=== PATIENT | female | born 1995 | race Caucasian/White ===

== ENCOUNTER 2024-12-31 23:50 | Inpatient (IN) ==
[2025-01-01] MEDS ORDERED: NIFEdipine 10 MG CAPSULE PO PRN (00:29)
[2025-01-01] MEDS ORDERED: LABETALOL 20 MG/4 ML SYRINGE IVP PRN ×3 (00:29)
[2025-01-01] MEDS ORDERED: TRANEXAMIC ACID IN NACL 1,000 MG/100 ML BAG IV PRN (00:29)
[2025-01-01] MEDS ORDERED: METHYLERGONOVINE 0.2 MG/ML VIAL IM PRN (00:29)
[2025-01-01] MEDS ORDERED: fentaNYL 100 MCG/2 ML VIAL IVP PRN (00:29)
[2025-01-01] MEDS ORDERED: hydrALAZINE INJ 20 MG/ML VIAL IVP PRN (00:29)
[2025-01-01] MEDS ORDERED: OXYTOCIN 10 UNIT/ML VIAL IM PRN (00:29)
[2025-01-01] MEDS ORDERED: lidocaine 1% 20 ML MDV ID PRN (00:29)
[2025-01-01] MEDS ORDERED: SODIUM CHLORIDE FLUSH 0.9% 10 ML SYRINGE IVP PRN (00:29)
[2025-01-01] MEDS ORDERED: TERBUTALINE 1 MG/ML VIAL SUBQ PRN (00:29)
[2025-01-01] MEDS ORDERED: miSOPROStoL 200 MCG TABLET BC PRN (00:29)
[2025-01-01] MEDS ORDERED: miSOPROStoL 200 MCG TABLET PR PRN (00:29)
--- NOTE | 2025-01-01 00:33 | HISTORY & PHYSICAL EXAMINATION ---
Admit History Visit Reason Visit Reason: Contractions and Membranes rupture (at about 1800) : 2 Parity: 1 Care: positive [facility] Risk/History: positive None Complications This : positive None Smoking Status: Never smoker Other Maternal History Other Maternal History: with IUP at 40w 5d by LMP presents in active labor. alot back discomfort. worked all week including today. US done for small for dates on 11/20/24 FINDINGS: General: A single living intrauterine gestation is present. Presentation: Vertex Placenta: Placental position is anterior, without previa. Amniotic fluid index: 11.9 cm, within normal limits for gestational age. heart rate: 160 beats per minute. Maternal cervical canal: 4.1 cm long; normal length is 2.5 cm or more. biometrics: Biparietal diameter: 8.3 cm, 33 weeks 2 days, 15% Head circumference: 30.2 cm, 33 weeks 3 days, 4% Abdominal circumference: 31.2 cm, 35 weeks 1 day, 73% Femur length: 6.4 cm, 33 weeks 2 days, 12% Estimated gestational age from initial scan: 34 weeks 4 days Composite gestational age from present scan: 33 weeks 6 days Estimated weight and percentile: 2391 g, 36% Measurement variability in biometric dating: +/- 10 days from 12-20 weeks gestation, +/- 2 weeks from 20-30 weeks gestation, +/- 3 weeks at 30 weeks gestation or more. IMPRESSION: Single live anterior consistent with 33 weeks and 6 days. Reviewed by: Kenneth Sauceda MD on 11/20/2024 Expected Delivery Route/Plan Delivery plan: declines elective IOL. would like not to be on IV fluids unless really needs. epidural maybe. Scheduled for late-term IOL on 01/05, 8pm. Specific Issues/Plans LMP: 03/22/2024 LUKAS by LMP: 12/27/2024 US on 05/14/24 C/W LUKAS by LMP Final LUKAS: 12/27/2024 Moved from [place] to [facility], 1st visit here at 27wk. 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 , Crispin, retired [employer], he is working on a [employer]. They are both from [place]. Daughter, Stefanie, will be 2 in December. This is baby girl, Scarlet. Pre- Weight: 125 lb BMI: 22.2 Blood type: O+ Antibody: negative CBC: PLT-285 HCT-39.2 HGB-12.9 RUB: immune VZV: immune HBsAg: negative HepC: negative RPR/AB-EIA: non-reactive HIV: negative PAP: 01/11/2022-negative GC/CT: negative (06/14) HSV: denies in herself/partner Genetic testing: NIPT on 05/31-negative. AFP done 07/14-negative Covid: declines Flu: declines TDAP: 09/30 RSV: 11/12/24 FAS: 08/09/2024 Placenta: anterior Cord: 3VC LIZA: wnl EFW: wnl 50gm OGCT: 169 3HR GTT: F77 1hr 132 2hr 104 3 hr 115 Breast Pump: 09/30 Antibody screen: 3rd trimester PLT 226 HCT 36.4 HGB12.4 3rd trimester RPR: NR GBS: negative Contraception: natural family planning HPI Current : Current EDU 12/27/24 Gestation 40 Weeks and 5 Days Para 1 NST Procedure NST Procedure: NST Procedure Start Date 12/31/24 Start Time 23:55 Stop Time 00:17 Vibroacoustic Stimulation Used No Patient States Movement Yes Meds/Allgy Home Medications Ambulatory Orders Medication Instructions Recorded Confirmed vits no.126-ferrous fum tab PO QDAY 09/20/24 12/29/24 28 mg iron-folic acid 800 mcg tablet (Classic ) Allergies Allergies Allergy/AdvReac Type Severity Reaction Status Date / Time No Known Drug Allergies Allergy Verified 10/28/24 08:55 PFSH Active Problems All Active Problems (Updated 01/01/25 @ 00:39 by Eda Medina MD) Normal labor (Acute) Small for dates infant in prior , currently in third trimester (Acute) Supervision of normal in second trimester (Acute) Family History Family History (Updated 09/20/24 @ 13:50 by Marissa Drew RN) Father High blood pressure Social History Social History (Updated 09/20/24 @ 13:51 by Marissa Drew RN) Smoking Status: Never smoker Living arrangement: At home ETOH Use: None Substance Use: denies use Review of Systems Cardiovascular Denies: Irregular heart rate or shortness of breath with exertion Respiratory Denies: Shortness of breath Musculoskeletal Reports: Back pain Physical Abdominal Exam Contraction Frequency (min/apart): q3-4 min Contraction Intensity: positive Mild to moderate Uterine Resting Tone: positive Soft Monitoring Heart Rate Baseline: 135 Strip Review: positive Category I Presentation Presentation: positive Vertex Vaginal Exam Membranes: positive Membranes ruptured Dilation (in cm): 5 Effacement (%): 100 Station: positive -1 (very soft) Cervical Position: positive Midposition Speculum Exam Speculum Exam Performed: positive No Findings: positive Gross leak Plan for Labor Plan For Labor I expect patient to be DC'd or transferred within 96 hours.: Yes Plan for Labor: admit. tub. epidural is she wants. anticipate later today. Conclusion/Plan Problem List (1) Normal labor:
[2025-01-01] MEDS: LACTATED RINGERS 1,000 ML IV PRN (00:53)
[2025-01-01 00:59] LABS: BASOPHILS % (AUTO) 0.3 %; EOSINOPHILS # (AUTO) 0.2 10^3/uL (0.0-0.7); EOSINOPHILS % (AUTO) 1.4 %; HCT - HEMATOCRIT 39.4 % (37.0-47.0); HGB - HEMOGLOBIN 13.4 g/dL (12.0-16.0); MEAN CORPUSCULAR HEMOGLOBIN 31.3 pg (27.0-31.0); MEAN CORPUSCULAR VOLUME 92.1 fL (81.0-99.0); NEUTROPHILS # (AUTO) 8.6 10^3/uL (1.5-6.6); NEUTROPHILS % (AUTO) 72.5 %; PLT - PLATELET COUNT 187 10^3/uL (130-450); RED BLOOD COUNT 4.28 10^6/uL (4.20-5.40); RED CELL DISTRIBUTION WIDTH 12.5 % (12.0-15.0); WHITE BLOOD COUNT 11.9 x10^3/uL (4.8-10.8)
[2025-01-01] MEDS ORDERED: SODIUM CHLORIDE FLUSH 0.9% 10 ML SYRINGE IVP SCH (01:00)
[2025-01-01] MEDS ORDERED: ROPIVACAINE 0.2% 200 MG/100 ML BAG EP ONE (01:17)
[2025-01-01] MEDS: OXYTOCIN/SODIUM CHLORIDE 500 ML IV PRN (02:50)
--- NOTE | 2025-01-01 04:11 | ANESTHESIA PROCEDURE NOTE ---
Pre-Anesthesia VS, & Labs Diagnosis Surgical Diagnosis:: active labor Procedure Procedure: labor epidural Vitals Vital Signs: Temp Pulse Resp BP 36.9 C 107 H 18 134/87 H 01/01/25 01:18 01/01/25 01:18 01/01/25 01:18 01/01/25 01:18 NPO NPO: Other Is Patient ?: Yes Lab Results Current Lab Results: Laboratory Tests 01/01/25 02:21: Blood Type Recheck O POSITIVE 01/01/25 00:40: WBC 11.9 H, RBC 4.28, Hgb 13.4, Hct 39.4, MCV 92.1, MCH 31.3 H, MCHC 34.0, RDW 12.5, Plt Count 187, MPV 9.0, Neut # (Auto) 8.6 H, Lymph # (Auto) 2.0, [place] # (Auto) 1.0, Eos # (Auto) 0.2, Baso # (Auto) 0.0, Absolute Nucleated RBC 0.00, Nucleated RBC % 0.0, Blood Type O POSITIVE, Antibody Screen NEGATIVE 01/01/25 00:40 Meds/Allgy Home Medications Ambulatory Orders Medication Instructions Recorded Confirmed vits no.126-ferrous fum tab PO QDAY 09/20/24 12/29/24 28 mg iron-folic acid 800 mcg tablet (Classic ) Allergies Allergies Allergy/AdvReac Type Severity Reaction Status Date / Time No Known Drug Allergies Allergy Verified 10/28/24 08:55 PFSH Active Problems All Active Problems (Updated 01/01/25 @ 00:39 by Eda Medina MD) Normal labor (Acute) Small for dates infant in prior , currently in third trimester (Acute) Supervision of normal in second trimester (Acute) Family History Family History (Updated 09/20/24 @ 13:50 by Marissa Drew RN) Father High blood pressure Social History Social History (Updated 09/20/24 @ 13:51 by Marissa Drew RN) Smoking Status: Never smoker Do you dip or chew tobacco?: No Living arrangement: At home ETOH Use: None Substance Use: denies use Anesthesia Exam (Expanded) Exam General: Alert and Oriented x3 Dental: WNL Mouth Openin Fingerbreadth Mallampati classification: II Thyromental Distance: greater than 6 cm Respiratory: Lungs clear Cardiovascular: Regular rate Plan Problem List (1) Normal labor: Plan Anesthesia Type: Epidural Consent for Procedure(s) Verified and Reviewed: Yes Code Status: Attempt Resuscitation ASA Classification ASA classification: 2-Mild systemic disease Is this case an emergency?: No
[2025-01-01] MEDS: ACETAMINOPHEN 500 MG TABLET PO PRN (04:44)
[2025-01-01] MEDS: IBUPROFEN 600 MG TABLET PO SCH (08:34)
[2025-01-01] MEDS: DOCUSATE SODIUM 100 MG CAPSULE PO SCH (10:13)
--- NOTE | 2025-01-01 15:06 | PHARMACY PROGRESS NOTE ---
Best Possible Medication History Admit Date and Time: 01/01/25 0100 Home Medications Medication Instructions Recorded Confirmed Type vits no.126-ferrous fum 1 tab PO QDAY 09/20/24 01/01/25 History 28 mg iron-folic acid 800 mcg tablet (Classic ) Processed by: Pharmacy Medications reviewed in ED?: No Medication History completed: Yes [facility] Statement: As the person ultimately responsible for medication therapy, providers are able to order a medication from an existing home medication list in [facility] via the "Reconcile Routine" prior to Confirmation of that medication by linux support engineer. Such practice is discouraged except when the physician, in their clinical judgment, deems that a medical need exists for a medication without regard to previous use.
[2025-01-01 15:47] VITALS: O2SAT 98
--- NOTE | 2025-01-01 20:33 | DELIVERY NOTE ---
Delivery Note Labor Labor: positive Spontaneous Infant Delivery Method Infant Delivery Method: positive Spontaneous vaginal delivery Presentation Presentation: positive Vertex and OA - occiput anterior Nuchal Cord Nuchal Cord: positive Present (x2, reduced easily) Amniotic Fluid Description Amniotic Fluid Description: positive Clear Episiotomy Type Episiotomy Type: positive None Laceration Laceration: positive None Delivery Outcome Delivery Date: 01/01/25 (around 1:15 am. ) Delivery Outcome: positive Livebirth [place]: positive Placed in direct skin contact with mother, Stimulated and Warmed sex: positive Female Cord Cord: positive 3 vessels Placenta Placenta: positive Intact and Spontaneous Estimated Blood Loss Estimated Blood Loss (in cc): 50 Post Delivery Events Post Delivery Events: positive No post delivery events Delivery Comments (Free Text/Narrative) Delivery Comments (Free Text/Narrative): Patient presents in active labor with SROM. She is 5 cm dilated and +1 station. She is admitted and decided she wanted an epidural. BEAN SNIPPER placed epidural and gave her some intrathecal meds. She say then feeling ready to push pretty quickly after that. She was having intense back pain. I asked her to bear down in between contractions and she did 3 times and baby's head delivered. nuchal cord x 2 easily reduced. Baby's shoulders and body then delivered and baby was put up on her belly. Bed was not broken down. There was a gush of blood after about 2 minutes so I clamped and cut the cord. Oxytocin was started. The placenta delivered with gentle traction. It was intact and discarded. Parents did not want to see it. There was very little blood initially and hardly any until about 7 hours later at 8:30 or so and she bled a bit, QBL 459 cc. Pitocin solved that. Baby is a girl named Marija. She weighed 3642 g, 8 pounds even. Baby's Apgars were good and she never left her mom's chest.
--- NOTE | 2025-01-01 20:45 | PROVIDER PROGRESS NOTE ---
Subjective Subjective Subjective: patient sleeping and room completely dark. I did not wake her up. Crispin jordand to me. Current Medications Current Medications Current Medications: Current Medications Generic Name Dose Route Start Last Admin Trade Name Jordy PRN Reason Stop Dose Admin Acetaminophen 1,000 mg 01/01/25 00:29 01/01/25 13:36 Acetaminophen 500 Mg Tablet PO 1,000 mg Q8H PRN Administration Mild Pain or Fever>38C(100.4F) Docusate Sodium 100 mg 01/01/25 10:00 01/01/25 10:13 Docusate Sodium 100 Mg Capsule PO 100 mg DAILY CHEPE Administration Fentanyl 50 mcg 01/01/25 00:29 Fentanyl 100 Mcg/2 Ml Vial IVP Q1H PRN Severe Pain (score 7-10) Hydralazine HCl 5 - 10 mg 01/01/25 00:29 Hydralazine Inj 20 Mg/Ml Vial IVP Q20M PRN SBP> or= 160 OR DBP> or= 110 Protocol Lactated Ringer's 500 mls @ 999 mls/hr 01/01/25 00:29 01/01/25 00:53 Lr IV 999 mls/hr PRN PRN Administration Blood Pressure Oxytocin/Sodium Chloride 500 mls @ 999 mls/hr 01/01/25 00:29 01/01/25 08:05 Pitocin/Sodium Chloride IV 999 milliunit/min PRN PRN 999 mls/hr POST- HEMORR PREVENTION Administration Protocol 999 MILLIUNIT/MIN Tranexamic Acid 1,000 mg in 100 mls @ 600 mls/hr 01/01/25 00:29 Tranexamic 1,000 Mg/100ml-Nacl IV Q30M PRN EBL >1200mL and within 3hr Ibuprofen 600 mg 01/01/25 09:00 01/01/25 15:44 Ibuprofen 600 Mg Tablet PO 600 mg Q6H CHEPE Administration Labetalol HCl 20 - 80 mg 01/01/25 00:29 Labetalol 20 Mg/4 Ml Syringe IVP Q10M PRN SBP> or= 160 OR DBP> or= 110 Protocol Labetalol HCl 20 mg 01/01/25 00:29 Labetalol 20 Mg/4 Ml Syringe IVP .ONCE PRN SBP> or= 160 OR DBP> or= 110 Protocol Labetalol HCl 20 - 40 mg 01/01/25 00:29 Labetalol 20 Mg/4 Ml Syringe IVP Q10M PRN SBP> or= 160 OR DBP> or= 110 Protocol Lidocaine HCl 20 ml 01/01/25 00:29 Lidocaine 1% 20 Ml Mdv ID 01/04/25 00:29 .ONCE PRN PERINEAL REPAIR Methylergonovine Maleate 0.2 mg 01/01/25 00:29 Methylergonovine 0.2 Mg/Ml Vial IM .ONCE PRN Hemorrhage Misoprostol 600 mcg 01/01/25 00:29 Misoprostol 200 Mcg Tablet BC .ONCE PRN Hemorrhage Misoprostol 800 mcg 01/01/25 00:29 Misoprostol 200 Mcg Tablet IA .ONCE PRN Hemorrhage Nifedipine 10 - 20 mg 01/01/25 00:29 Nifedipine 10 Mg Capsule PO Q20M PRN SBP> or= 160 OR DBP> or= 110 Protocol Oxytocin 10 unit 01/01/25 00:29 Oxytocin 10 Unit/Ml Vial IM .ONCE PRN Step One if no IV access. Sodium Chloride 10 ml 01/01/25 00:29 Sodium Chloride Flush 0.9% 10 Ml Syringe IVP PRN PRN NEEDED PER PROVIDER ORDERS Objective Vital Signs/Intake & Output Vital Signs: Vital Signs x48h Temp Pulse Resp BP Pulse Ox 01/01/25 20:03 36.8 C 80 16 110/70 98 01/01/25 15:46 81 16 110/66 98 Intake & Output: Intake & Output 12/29/24 12/30/24 12/31/24 01/01/25 23:59 23:59 23:59 23:59 Intake Total 1700 / 1700 Output Total 1200 / 1200 Balance 500 / 500 Weight (kg) 156 lb Lab Results 01/01/25 00:40 Other Labs: Lab Results x24hrs 01/01/25 01/01/25 Range/Units 02:21 00:40 WBC 11.9 H (4.8-10.8) x10^3/uL RBC 4.28 (4.20-5.40) 10^6/uL Hgb 13.4 (12.0-16.0) g/dL Hct 39.4 (37.0-47.0) % MCV 92.1 (81.0-99.0) fL MCH 31.3 H (27.0-31.0) pg MCHC 34.0 (32.0-36.0) g/dL RDW 12.5 (12.0-15.0) % Plt Count 187 (130-450) 10^3/uL MPV 9.0 (7.9-10.8) fL Neut # (Auto) 8.6 H (1.5-6.6) 10^3/uL Lymph # (Auto) 2.0 (1.5-3.5) 10^3/uL [place] # (Auto) 1.0 (0.0-1.0) 10^3/uL Eos # (Auto) 0.2 (0.0-0.7) 10^3/uL Baso # (Auto) 0.0 (0.0-0.1) 10^3/uL Absolute Nucleated RBC 0.00 x10^3/uL Nucleated RBC % 0.0 /100WBC Blood Type O POSITIVE Blood Type Recheck O POSITIVE Antibody Screen NEGATIVE Assessment/Plan Problem List (1) Normal labor:
[2025-01-02] MEDS ORDERED: IBUPROFEN 600 MG TABLET PO PRN (08:34)
[2025-01-02] MEDS ORDERED: ACETAMINOPHEN 325 MG TABLET PO PRN (08:34)
--- NOTE | 2025-01-02 08:40 | Discharge Summary ---
Discharge Summary Admit Date: 01/01/25 Discharge Date: 01/02/25 Discharging Provider: Eda Medina MD Code Status: Attempt Resuscitation DIAGNOSES Admission Diagnoses: term in active labor Discharge Diagnoses with Status of Each Condition: normal vaginal delivery HPI History of Present Illness: term , uncomplicated HOSPITAL COURSE Hospital Course: presented in active labor 5 cm. received epidural and delivered vaginally shortly afterward. Baby girl 8 pounds even. PP course unremarkable. some bleeding at about 8 hrs requiring more pitocin. ALLERGIES Allergies Allergy/AdvReac Type Severity Reaction Status Date / Time No Known Drug Allergies Allergy Verified 10/28/24 08:55 MEDICATIONS Ambulatory Orders Medication Instructions Recorded Confirmed vits no.126-ferrous fum 1 tab PO QDAY 09/20/24 01/01/25 28 mg iron-folic acid 800 mcg tablet (Classic ) acetaminophen 325 mg capsule 325 - 650 mg PO Q4H PRN 01/02/25 docusate sodium 100 mg capsule 100 mg PO BID 01/02/25 (Colace) ibuprofen 600 mg tablet 600 mg PO Q6H PRN 01/02/25 PHYSICAL EXAM AT DISCHARGE General Appearance: positive No acute distress Cardiovascular: positive Regular rate & rhythm LABS 01/01/25 00:40 FOLLOW UP Follow Up: in Ob clinic in 1-2 weeks. we will call her. TIME SPENT Time Spent in Discharge (Minutes): 15 Discharge Plan Discharge Patient Disposition: Home, Self Care Prescriptions: Continued Classic 28 mg iron- 800 mcg tablet 1 tab PO QDAY No Action acetaminophen 325 mg capsule 325 - 650 mg PO Q4H PRN ibuprofen 600 mg tablet 600 mg PO Q6H PRN docusate sodium [Colace] 100 mg capsule 100 mg PO BID Activity Restrictions: pelvic rest for 6 weeks Diet: Regular Print Language: Occitan Patient Instructions: Vaginal, Follow-up Care: Eda Medina MD [Provider Admit Priv/Credential] - (we will call her with appt)
[2025-01-02] MEDS ORDERED: DOCUSATE SODIUM 100 MG CAPSULE PO SCH (09:00)
[2025-01-02 11:03] VITALS: BP 111/71; TEMP 98.6
--- NOTE | 2025-01-02 13:06 | Labor Flowsheet ---
Labor Flowsheet Datetime Report Generated by CPN: 01/02/2025 13:06 Datetime: 01/02/2025 11:01 VITAL SIGNS NBP Sys/Rosey/Mean (mmHg): 111 : 71 : 79 Pulse: 79 Datetime: 01/01/2025 04:03 Membranes Ruptured Date/Time: 12/31/2024 20:00 Membranes Rupture Method: Spontaneous Amniotic Fluid Color: Clear Amniotic Fluid Amount: Moderate Amniotic Fluid Odor: Normal Datetime: 01/01/2025 01:46 Stage of : Recovery Respirations: 18 SpO2 (%): 98 Temperature (C): 37.0 Temperature Route: Oral Datetime: 01/01/2025 01:45 LaborFlag: OB Triage Datetime: 01/01/2025 01:33 COMMUNICATION Communication: Provider at Bedside Provider Notified (Name): Medina Datetime: 01/01/2025 01:30 VAGINAL EXAM Dilatation (cm): 10.0 Effacement (%): 100 Station: 2 Exam by: juliana dubose rn Vaginal Bleeding: Normal Show Cervix, Consistency: Soft Cervix, Position: Anterior Vaginal Exam Comments: md notified Procedures: Sterile Vag Exam Patient Position/Activity: HOB Lowered ANESTHESIA Anesthesia Plans: Spinal Epidural Procedure: Test Dose Epidural Procedure Other: Single Dose Datetime: 01/01/2025 01:20 PROCEDURE TIME OUT Procedure Type: 0120 Procedure Verify: Correct Patient Identity; Correct Side and Site are Marked; Agreement on Procedur e to be Done Epidural Positioning: Sitting Datetime: 01/01/2025 01:19 Patient Care Comments: admit for labor, transfer to room2 Datetime: 01/01/2025 01:06 ASSESSMENT A Monitor Mode: Telemetry FHR Baseline Rate : 135 FHR Baseline Changes: No Baseline Change Variability: Moderate 6-25 bpm Accelerations: 10X10 Decelerations: None Category: Category I Comments: maternal position interferes with tracing PATIENT CARE Oxygen Method: Room Air
== END 2025-01-02 11:40 | disposition home or self-care (01) | DRG 807 ==
LOC: WFO 23:50 → FBP 23:52
PROVIDERS: ADMIT Obstetrics & Gynecology; ATTEND Obstetrics & Gynecology
DX: O48.0 Post-term pregnancy; Z3A.40 40 weeks gestation of pregnancy; O69.81X0 Labor and delivery complicated by cord around neck, without compression, not applicable or unspecified; Z37.0 Single live birth